=== PATIENT | female | born 1980 | race Caucasian/White ===

== ENCOUNTER 2017-02-12 11:11 | Emergency (ER) | payer OTHER, MEDICARE ==
--- NOTE | 2017-02-12 11:26 | ED PSYCHIATRIC COMPLAINT ---
History of Present Illness General Chief Complaint: Psychiatric Related Complaint Stated Complaint: BIBA AMS Source: patient, EMS, police Exam Limitations: confusion Vital Signs & Intake/Output Vital Signs & Intake/Output Vital Signs Date Time Temp Pulse Resp B/P B/P Pulse O2 O2 Flow FiO2 Mean Ox Delivery Rate 02/13 1104 97.8 67 20 96/55 98 Room Air 02/13 0754 97.2 74 20 101/75 97 Room Air 02/13 0630 97.2 72 18 96/51 97 Room Air 02/12 2113 97.0 80 20 127/88 98 Room Air 02/12 1748 97.0 80 18 103/62 98 Room Air ED Intake and Output 02/13 0000 02/12 1200 Intake Total 300 Output Total Balance 300 Intake, Oral 300 Allergies Coded Allergies: UNOBTAINABLE (02/12/17) Triage Note: 36 YO FEMALE BIBA [facility]. PER EMS PT WAS PICKED UP FROM [facility] FOR "ACTING ERRATICALLY" PT HAD HER CHILDREN WITH HER AT THE TIME. PER EMS PTS PICKED UP CHILDREN FROM [facility]. PER EMS PT TOOK ?GREG THIS AM. PT ARRIVES ALERT AND ORITEND. WHEN THIS RN TRIED TO TALK TO PT, PT STATING "CAN YOU PLEASE COME BACK I AM VERY BUSY RIGHT NOW" SECUIRTY AT BEDSIDE FRO WANDING Triage Nurses Notes Reviewed? yes : No Patient currently breastfeeds: No HPI: Patient brought in by EMS on a police paper for erratic behavior. Patient was at a gas station with her 2 children. Patient was unable to answer questions coherently. Patient states that she is GREG last night. Patient states that she has not been taking her bipolar medications. Patient denies any suicidal or homicidal ideations. Patient is not sure why she is here. (MINGO DAS,BILL Levy) Past History Travel History Traveled to [place] past 21 day No Medical History Any Pertinent Medical History? see below for history Psychiatric: bipolar disease Surgical History Surgical History: non-contributory Psychosocial History What is your primary language Welsh Tobacco Use: Current Daily Use Daily Tobacco Use Amount/Type: => 5 Cigarettes daily ETOH Use: occasional use Illicit Drug Use: ON SUBAXONE Family History Hx Contributory? No (MINGO DAS,BILL Levy) Review of Systems Review of Systems Constitutional: Reports: no symptoms. EENTM: Reports: no symptoms. Respiratory: Reports: no symptoms. Cardiovascular: Reports: no symptoms. GI: Reports: no symptoms. Genitourinary: Reports: no symptoms. Musculoskeletal: Reports: no symptoms. Skin: Reports: no symptoms. Neurological/Psychological: Reports: see HPI. Hematologic/Endocrine: Reports: no symptoms. Immunologic/Allergic: Reports: no symptoms. All Other Systems: Reviewed and Negative (BILL AGUILA MD) Physical Exam Physical Exam General Appearance: well developed/nourished, mild distress Head: atraumatic Eyes: Bilateral: PERRL, EOMI. Ears, Nose, Throat: normal pharynx, normal ENT inspection, hearing grossly normal Neck: normal inspection, supple Respiratory: normal breath sounds Cardiovascular: regular rate/rhythm Gastrointestinal: soft, non-tender Extremities: normal range of motion Neurological/Psychiatric: no motor/sensory deficits, awake, agitated, disoriented x 3 Appearance/Memory/Insight: denies illness Behavoir/Eye Contact/Speech: uncooperative, increased rate of speech Thoughts/Hallucinations: RESPONDING TO INTERNAL STIMULAE Skin: intact, normal color, warm/dry SAD PERSONS Done? CRISIS CONSULT OBTAINED (BILL AGUILA MD) Progress Differential Diagnosis: drug intoxication, drug overdose, drug withdrawal, electrolyte abnormality Plan of Care: Orders Procedure Date/time Status Regular Diet 02/13 B Active Continuous Observation Monitor 02/13 07 Active Continuous Observation Monitor 02/12 2022 Active Current Medications Sig/Christie Start time Last Medication Dose Stop Time Status Admin Clonazepam 1 MG TID 02/12 2257 AC 02/13 (Klonopin 1MG Tab) 02/19 2256 1014 02/13/2017 7:46:54 AM Patient's signed out to me by Dr. Lopez. Pending crisis evaluation and disposition. DR. ROBB ACCEPTING PATIENT AT [facility]. DX SHIZOAFFECTIVE DISORDER. (YANIV FRANCOIS MD) Hand-Off Endorsed To: PRASANNA LOPEZ MD Endorsed Time: 1900 Pending: consult (CRISIS) (BILL AGUILA MD) Hand-Off Endorsed To: YANIV FRANCOIS MD Endorsed Time: 0700 Pending: consult (PRASANNA LOPEZ MD) Departure Departure Disposition: STILL A PATIENT Condition: Stable Departure Forms: Customer Survey General Discharge Information (BILL AGUILA MD) Departure Clinical Impression Primary Impression: Schizoaffective disorder (YANIV FRANCOIS MD) Critical Care Note Critical Care Note Critical Care Time: 30-74 min (YANIV FRANCOIS MD) , Urine Bacteria MOD H, Urine Hemoglobin MOD H, Urine Glucose NEG 02/13/2017 7:46:54 AM Patient's signed out to me by Dr. Lopez. Pending crisis evaluation and disposition. (YANIV FRANCOIS MD) Hand-Off Endorsed To: PRASANNA LOPEZ MD Endorsed Time: 1900 Pending: consult (CRISIS) (BILL AGUILA MD) Hand-Off Endorsed To: YANIV FRANCOIS MD Endorsed Time: 0700 Pending: consult (PRASANNA LOPEZ MD) Departure Departure Disposition: STILL A PATIENT Condition: Stable Clinical Impression Primary Impression: Psychosis Departure Forms: Customer Survey General Discharge Information (BILL AGUILA MD)
[2017-02-12 12:03] LABS: ABSOLUTE BASOPHIL COUNT 0 /CUMM (0.0-0.2); ABSOLUTE EOSINOPHIL COUNT 0 /CUMM (0.0-0.7); ABSOLUTE GRANULOCYTE CT 9.8 /CUMM (1.4-6.5); ABSOLUTE LYMPH COUNT 0.8 /CUMM (1.2-3.4); ABSOLUTE MONOCYTE COUNT 0.7 /CUMM (0.10-0.60); BASOPHIL % 0.4 % (0.0-2.0); EOSINOPHIL % 0.2 % (0-5); HEMATOCRIT 39.6 % (37-47); MEAN CORPUSCULAR HGB 29.9 PG (27.0-31.0); MEAN CORPUSCULAR VOLUME 90.5 FL (81.0-99.0); MEAN PLATELET VOLUME 8.2 FL (7.4-10.4); PLATELET COUNT 208 /CUMM (130-400); RBC DISTRIBUTION WIDTH 13.7 % (11.5-14.5); RED BLOOD CELL CT 4.38 /CUMM (4.20-5.40); WHITE BLOOD CELL COUNT 11.4 /CUMM (4.8-10.8)
[2017-02-12 12:19] LABS: LITHIUM 0.3 mmol/L (0.6-1.2)
--- NOTE | 2017-02-12 14:47 | ED PSY CRISIS COLLATERAL NOTE ---
Collateral Note Collateral Note Family/Inform/Gail Contacts: Patient's , Omar/Zay, called crisis to check in on patient. Omar appeared possibly under the influence during phone conversation, slurring words and pausing inappropriately when responding to questions. Omar is home with their 2 children (age 9&6). Omar was vague with responding to questions from this junior copywriter. He did not believe his was under the influence this morning and reported that she does not have a substance abuse hx. Omar stated that she packed up bags this morning and left with 2 children but was unclear as to why she did this. Omar should be notified once patients disposition is determined. Omar's # is [phone]. SW filed DCF 136 form after speaking with Omar. Informed DCF worker that children are home with him and it is unclear whether or not is he under the influence at this time and mother still has not been evaluated by crisis. Original 136 form in patients chart on floor.
--- NOTE | 2017-02-12 20:48 | ED PSYCH CRISIS CONSULTATION ---
Crisis Consult Basic Assessment Date of Consult: 02/12/17 Responsible Person/Accompanied By: XIN Insurance Authorization: Insurance #1: Insurance name: MEDICARE A Phone number: Policy number: [id number] Group number: Authorization number: ED Provider: Patient's ED Provider: MINGO DAS,BILL Levy Primary Care Physician: Patient's PCP: PATIENT HAS NO PRIMARY CARE DR PCP's Phone Number: Chief Complaint: Psychiatric Related Complaint Patient's Quote: "I had a bad night last night" Present Illness: Pt is a 36 year old female arriving to ER after someone called the police while she was "crying at gas pump", and acting erratically". Pt tox screen is positive for benzos and opiates, pt reports she relapsed a few days ago on Heroin, would not elaborate on how often or how much she uses, she states :i use rarely, Im on suboxone and Im prescribed klonopin", pt was not entirely oriented to time, she knew she was in a hospital. Pt was groggy, her eyes wouldn't stay open for very long during this evaluation. She was able to reiterate that her had done something illegal, and since then a stranger had been watching her home and last night her told her to barricade herself into the children room as he told her there was a man in their home. Pt stated she heard noises in their home "that didn't sound right", she states "my is putting me and his children at risk, and only thinking of himself". she offers he left her home after this incident last evening, so in the morning, she thought she would pack up her children and head to [place]. Pt is not being forthcoming about relaspe, or who her current providers are that prescibe klonopin and suboxone. Pt is irritable, and stated, "i dont want to talk to anyone anymore". DCF certified legal investigator Monique, came out to evaluate pt and stated the pt was not able to sign paperwork due to her inability to stay alert, and appeared out of it. The investigation also stated the pt had done Mollies, when DCF asked the pt stated that was a few days ago. When DCF went to her home, the room was barricaded, the children had food in their fridge, put told her they were hungry , and the pt had prepared to make her own slime, with the kids, this feat seemed very elaborate per [facility]. Pt has 2 children 9, 6 and was acting bizarre, pt is under the influence of drugs, they went out to the home, and their father will be staying home with them tonight as well as getting them ready in the morning for school. Patient's Address: [address] [place] [address] Other Phone Number: Who Do You Live With? Family Family/Informants Interviewed: Monique primary certified legal investigator from [facility] stated there was an open case with this family that recently closed January 12, 2017. And drugs are factor, she states [place] office will follow up in the morning. Allergies - Coded Allergies: UNOBTAINABLE (02/12/17) Laboratory Results: Laboratory Tests 02/12/17 1146: Anion Gap 9, Estimated GFR > 60, BUN/Creatinine Ratio 15.7, Glucose 98, Calcium 10.0, Total Bilirubin 0.9, AST 50 H, ALT 53 H, Alkaline Phosphatase 61, Total Protein 7.2, Albumin 4.3, Globulin 2.9, Albumin/Globulin Ratio 1.5, Total Beta HCG NEGATIVE, CBC w Diff MAN DIFF ORDERED, RBC 4.38, MCV 90.5, MCH 29.9, RDW 13.7, MPV 8.2, Gran % 86.0 H, Lymphocytes % 7.1 L, Monocytes % 6.3, Eosinophils % 0.2, Basophils % 0.4, Absolute Granulocytes 9.8 H, Absolute Lymphocytes 0.8 L, Absolute Monocytes 0.7 H, Absolute Eosinophils 0, Absolute Basophils 0, Platelet Estimate VERIFIED BY SMEAR, Normocytic RBCs VERIFIED, Normochromic RBCs VERIFIED, PUBS MCHC 33.0, [place] 0.3 L, Serum Alcohol < 10.0 02/12/17 1145: Urine Opiates Screen > 4000.00 H, Methadone Screen 42, Barbiturate Screen < 60, Ur Phencyclidine Scrn < 6.00, Amphetamines Screen < 100, U Benzodiazepines Scrn > 800 H, Urine Cocaine Screen 97, Urine Cannabis Screen < 5.00, Urine Color YEL , Urine Clarity CLDY H, Urine pH 6.0, Ur Specific [place] >= 1.030, Urine Protein 100 H, Urine Ketones 15 H, Urine Nitrite NEG, Urine Bilirubin NEG@ICTO , Urine Urobilinogen 0.2, Ur Leukocyte Esterase TRACE H, Ur Microscopic SEDIMENT EXAMINED, Urine RBC 3-5, Urine WBC > 75 H, Ur Epithelial Cells MANY H , Urine Bacteria MOD H, Urine Hemoglobin MOD H, Urine Glucose NEG (PAULINE BISHOP,SAGE) Addendum Addendum The patient was revisited today, 02/13/17 @ 0930 in [place] [facility]. She is sleeping, but arousable. Alert and oriented to person, day, knows she is in a hospital, which she thinks is in [place]. The patient's home is in [place], [place]. She reports good sleep at home, and reports sleeping last night. The patient denies current or history of auditory or visual hallucinations. She denies suicidal or homicidal ideation. The patient reports a history of suicide attempt by hanging "in my mid-twenties; " she reports that the attempt "didn't work out, the thing came off the wall." The trigger was, "I was with my daughter;" she does not elaborate when asked. She reports a psychiatric hospitalization within the last year, but is unable to remember the details, except that, "I wasn't suicidal; I think DCF was in my life." The patient does not remember her diagnoses, medications, nor her treaters or prescribers. She then remembers that she takes Suboxone, but does not know her prescriber. When prompted, she recognizes lithium as a medication, but cannot state when she took it last; she recognizes clonazepam and Trilafon/ perphenazine. She does not know why she takes any of her medications. She then remembers that she has "borderline." She reports she has been taking her medications daily, including Suboxone, lithium, clonazepam and Trilafon. She denies alcohol use, and states that she does not use drugs very often. She reports that she injects heroin, and takes Ecstasy/Berna once in a while. The patient lives at home with her spouse and her two children. She is upset that DCF is again involved with her children. She does not work, but has a large garden. She reports issues with her , "We don't see eye to eye," but will not elaborate. She feels safe at home. UA is abnormal: cloudy yellow urine, + protein, + ketones, negative nitrites, trace esterase, sediment, WBC > 75, moderate bacteria, moderate hemoglobin, negative glucose. UTox was positive for opiates and benzodiazepines. Per the medication claim history: (Corrected; see collateral from [facility], below Suboxone 8/2 mg 1 tab SL AM and 1/2 tab SL PM, per [place] [facility] (Dr. Alexi Gaytan, prescriber) [place] ER 300 mg #60/30 days on 10/07/16 Perphenazine 8 mg #30/30 days on 10/03/16 Clonazepam 0.5 mg #30/15 days on 01/23/17, per the [place] [facility] Aware report. Collateral - Current psychiatric provider I placed a call to [facility], and [place] at 1000; expect a return call. Call returned at 1100 by Sabi Amato APRN, her prescriber at [facility] outpatient services. She has seen the patient once and reports: 1. Diagnoses are bipolar disorder I, MRE mixed, rule out schizoaffective disorder bipolar type, rule out depressive disorder with psychotic features, anxiety d/o NOS, opiate use d/o. she has a history of denominational delusions. 2. Meds, as of 01/20/2017: [place] ER 300 mg PO 2X/day and lithium 600 mg PO at bedtime, (Last lithium level was 1.0), perphenazine 8 mg 2X/day, clonazepam 0.5 mg PO up to 2X/day as needed for anxiety, benztropine 1 mg 2X/day, and Seroquel 25 mg PO 3X/day for anxiety or agitation. [Note: DOLORES Amato only reports lithium 300 mg PO 2X/day, and does not include the 600 mg dose at bedtime. There is mention in the notes of a possible plan to change to [place], since the patient was working on getting .] 3. The patient was hospitalized at [facility] on 10/03/2016 for psychosis, bizarre thoughts and paranoia, high lability, and discharged in October. She had previously been hospitalized at [facility] in 2012 for psychiatry; reason unclear. 4. She has had severe akithisia with Zyprexa. She has had an unidentified adverse reaction to Depakote. 5. The patient has a history of alcohol abuse, as well as her opiate use disorder. Collateral - Spouse, Omar Corona. He is supportive of her admission to inpatient psychiatry, and notes that the current medication regimen is making her shaky and nervous. 02/13/17 1600: [facility] in [place] has accepted the patient for admission today for a 7:30 PM arrival. The patient is going voluntarily, and has signed the [facility] voluntary form. Receiving MD is Dr. Hebert. Diagnosis is schizoaffective d/o. Nurse to nurse phone is [phone]. Plan discussed with Dr. Mcclendon, who is in agreement. (RENAY JONES,ROSIE Fernando) Past History Past Medical History Psychiatric: bipolar disease Past Surgical History Surgical History: non-contributory Psychosocial History Strengths/Capabilities: had been clean per [facility] while they were involved and she had been cooperative. Psychiatric Treatment History Psych Treatment Psychiatric Treatment Yes Inpatient Treatment Yes Outpatient Treatment Yes Location of Treatment [facility] Reason for Treatment unknown Dates of Treatment per a few weeks ago, and current in outpatient Response to Treatment unknown Diagnosis by History: Bipolar per notes/ and opiate benzo disorder Substance Use/Abuse History Drug Use/Abuse 1 Substances Used/Abused Yes Substance Used/Abused Benzodiazepines First Use unknown Last Used today How much used/taken unknown How often daily For how long unknown Route of use prescibed oral Drug Use/Abuse 2 Substances Used/Abused Yes Substance Used/Abused Heroin First Use wouldnt answer Last Used today How much used/taken unknown How often unknown For how long unknown Route of use unknown Substance Abuse Treatment Substance Abuse Treatment Past Substance Abuse [place] Yes Comments: unknown, pt will not disclose (SAGE CARPENTER LCSW) Current Mental Status Mental Status Orientation: Confused Affect: Constricted Speech: Evasive, Incoherent, Mumbled Neuro-vegetative: Appetite Decreased, Concentration Poor, Energy Decreased, Sleep Disturbance Appearance Appearance- Dress/Hygiene: unkempt Behaviors Thought Process: Disorganized Thought Content: WNL Memory: WNL Insight: Poor SI/HI Risk Assessment Current Suicidal Ideation/Att No Past Homicidal Ideation/Att: No Current Homicidal Ideation/Attempts No Degree of Intent: None Danger To: Self Gravely Disabled: Poor Judgment Risk Factors: substance abuse, poor impulse control, lack of outcome concern, limited support Lethality Ratin PTSD Checklist PTSD Done? patient declined ED Management Sitter: Yes Restraints: No (SAGE CARPENTER LCSW) DSM5/PS Stressors/Medical Prob Diagnosis' (DSM 5, Stressors, Medical): [place] I: Bipolar unspecified F31.9 Opiate use disorder severe F11.20 benzo use disorder moderate F13.20 [place] II: Deferred [place] III: Unknown [place] IV: recent DCF involvement, martial conflict Current GAF: 27 (SAGE CARPENTER LCSW) Departure Disposition Psych Medical Clearance Date: 02/12/17 Medically Cleared at: 1700 Time Started: 1700 Time Ended: 1800 Psychiatrist Consulted: Nevin Hyman Date Disposition Established: 02/12/17 Time Disposition Established: 2037 Plan for Disposition - Modality: Hold over/re evaluate Follow-up Appt Date: 02/13/17 Rationale for Disposition: Consulted with Dr. Hyman, pt to be further evaluated in the morning she is not able to stay alert and is disoriented at this time. Additional Instructions: Follow up with DCF in [place] regarding disposition, they will call us after the case has been assigned. Referrals PATIENT HAS NO PRIMARY CARE DR (PCP/Family) (SAGE CARPENTER LCSW)
[2017-02-13 11:04] VITALS: BP 96/55
--- NOTE | 2017-02-13 13:41 | ED PSYCHIATRIST/APRN CONSULT ---
Psychiatrist/CABINETMAKER MAINTENANCE ED Consult Assessment and Plan: The patient is a 37 years old , single female, mother of three children , was brought into the emergency room by ambulance and the police after she was found in a gas station being confused, incoherent. She stated that she was on her way to [place] where she would want to relocate. She admits to have been using heroin alongside prescribed clonazepam. The patient had her mlzc-ebtr-hfy and glp-jzlf-edi children with her period. Currently DCF is involved. The patient presented as a petite female, lying in the hospital bed, dressed in paper scrubs issued by the hospital. She described mood as depressed and upset, she stated that she only wanted her children back, affect was labile, she has poor insight and judgment. Assessment: diagnosis unspecified bipolar disorder (as per patient the patient admits that she took the heroin and the medication and attempt to self soothe, calm herself down). She recognized too late that she was driving her children under the influence. Currently DCF is involved. The patient agreed to have treatment with antidepressant to be started on an inpatient basis. She will transfer to [facility], as soon as a bed becomes available.
== END 2017-02-13 19:17 | disposition other institution (70) ==
LOC: ERH 11:11
PROVIDERS: Emergency Medicine
DX: F25.9 Schizoaffective disorder, unspecified (principal)
CPT/HCPCS: 80307; 81001; G0463; G0480; J0574